=== PATIENT | female | born 1950 | race Caucasian/White ===

== ENCOUNTER 2019-02-07 11:34 | Emergency (ER) | payer SELFPAY, OTHER ==
[2019-02-07] MEDS: ACETAMINOPHEN 500 MG TAB PO (12:31)
[2019-02-07] MEDS: KETOROLAC 30 MG INJ IM (14:25)
== END 2019-02-07 14:38 | disposition home or self-care (01) ==
LOC: E/R 11:34 → FTE 14:38
DX: S20.212A Contusion of left front wall of thorax, initial encounter (principal); I10 Essential (primary) hypertension; X58.XXXA Exposure to other specified factors, initial encounter; Y92.9 Unspecified place or not applicable
CPT/HCPCS: 71046; 71110; 96372; 99284-25